=== PATIENT | female | born 1950 | race Caucasian/White ===

== ENCOUNTER 2025-02-07 06:58 | Emergency (ER) | payer MEDICARE, SELFPAY ==
[2025-02-07 07:05] VITALS: BP 144/83; PULSE 86; TEMP 36.5; O2SAT 96; BMI 25.8
--- NOTE | 2025-02-07 07:33 | ED.NECK1 ---
HPI HPI - Neck Pain/Injury General Chief Complaint: Neck Pain/Injury Stated Complaint: NECK PAIN Time Seen by Provider: 02/07/25 07:10 Source: patient Mode of arrival: walk-in History of Present Illness HPI Narrative: The patient is a 74 years old female is coming today with a left neck pain that started last night, she is not able to turn her neck to the left side because of the pain she mentioned that she installed a TV that is little bit higher than her side and she have to look up to watch the TV, the patient denies any other complaint and no numbness tingling in her arm no other complaint of chest pain or nausea vomiting Patient applying warm compression to her left neck Related Data Previous Rx's ?Medication ?Instructions ?Recorded diclofenac sodium 50 mg 50 mg PO Q12H PRN pain #20 tabs 02/07/25 tablet,delayed release orphenadrine citrate 100 mg 100 mg PO BID PRN muscle spasm #20 02/07/25 tablet,extended release tabs Allergies Allergy/AdvReac Type Severity Reaction Status Date / Time codeine Allergy Vomiting Verified 02/07/25 07:04 Opioid HPI Opioid Management Most Recent Opioid Data: Last Pain Scale 8 Today, 07:45 Last MAR Pain Assessment Today, 07:45 Review of Systems ROS Status of ROS 10 or more systems reviewed and unremarkable except as noted in history and below PFSH PFSH Social History Little interest or pleasure in doing things: not at all Feeling down, depressed, or hopeless: not at all Exam Narrative Exam Narrative: Nurses notes and vital signs reviewed and patient is not hypoxic. General: Well-appearing and in no apparent distress. Skin: Warm, dry, no pallor noted. No rash. Head: Normocephalic, atraumatic. Neck: There is no intervertebral line tenderness and there is no right paraspinal muscle tenderness the patient only have limited left paraspinal muscle tenderness mostly at the upper cervical level and there is still full range of movement but with pain Neurological: A&O x4. No cranial nerve dysfunction observed. No truncal ataxia. Moves all extremities. Sensation intact. Psychiatric: Cooperative and interactive. Normal mood and affect. Constitutional Vital Signs, click to edit/add: Last Vital Signs Temp 97.7 F 02/07/25 07:05 Pulse 86 02/07/25 07:05 Resp 18 02/07/25 07:05 BP 144/83 H 02/07/25 07:05 Pulse Ox 96 02/07/25 07:05 O2 Del Method Room Air 02/07/25 07:05 Course Vital Signs Vital signs: Vital Signs Temperature 97.7 F 02/07/25 07:05 Pulse Rate 86 02/07/25 07:05 Respiratory Rate 18 02/07/25 07:05 Blood Pressure 144/83 H 02/07/25 07:05 Pulse Oximetry 96 02/07/25 07:05 Oxygen Delivery Method Room Air 02/07/25 07:05 Temperature 97.7 F 02/07/25 07:05 Pulse Rate 86 02/07/25 07:05 Respiratory Rate 18 02/07/25 07:05 Blood Pressure 144/83 H 02/07/25 07:05 Pulse Oximetry 96 02/07/25 07:05 Oxygen Delivery Method Room Air 02/07/25 07:05 MDM - Neck Pain/Injury MDM Narrative Medical decision making narrative: Patient have a neck spasm and paraspinal muscle muscle strain to the left side of the neck which could be secondary to torticollis right now the patient was started on Toradol as well as Norflex instructed to hydrate very well and she was discharged with Voltaren and Norflex with instruction to come back in case of new symptoms and continue to stretch her neck muscles on a regular basis The patient to follow-up with the primary care within 2 to 3 days and to come back to the ER in case of any worsening of the current symptoms or any new symptoms or concerns Discharge Plan Discharge Chief Complaint: Neck Pain/Injury Clinical Impression: Acute torticollis, Neck sprain Patient Disposition: Home, Self-Care Time of Disposition Decision: 07:34 Condition: Good Prescriptions / Home Meds: New diclofenac sodium 50 mg tablet,delayed release (DR/EC) 50 mg PO Q12H PRN (Reason: pain) Qty: 20 0RF orphenadrine citrate 100 mg tablet extended release 100 mg PO BID PRN (Reason: muscle spasm) Qty: 20 0RF Print Language: Mauritanian Instructions: Spasmodic Torticollis (ED), Neck Pain (ED) Additional Instructions: Please make sure you hydrate very well Take all your medication with food Make sure that you are stretching your neck muscles regularly The patient to follow-up with the primary care within 2 to 3 days and to come back to the ER in case of any worsening of the current symptoms or any new symptoms or concerns Discharge Date/Time: 02/07/25 08:03
[2025-02-07] MEDS: KETOROLAC TROMETHAMINE 30 MG/ML VIAL 15 MG IM (07:45)
[2025-02-07] MEDS: ORPHENADRINE 60 MG/2 ML VIAL IM (07:47)
--- OUTSIDE RECORDS SUMMARY | 2025-02-07 07:49 | XMS_ITS | Clinical Summary ---
Author Organization [facility] Address [address] [facility] [place] [address] Care Team Providers Care Casing Tester Name Role Phone Kamari Quinn MD Primary Care Provider [phone] Allergies Active AllergyReactionsCriticalityNoted BumpGxfhzzefDzstvfaDbxcigixa60/05/2023 UokrwRqctr17/07/2025Venlafaxine QroOygxp20/07/2025 Medications MedicationSigDispense QuantityRefillsLast FilledStart DateEnd DateStatus KRILL OIL OMEGA-3 PO Krill OilActive cholecalciferol (Vitamin D-3) 125 MCG (5000 UT) tablet Vitamin I6Bfjfxv Glucosamine-Chondroitin (OSTEO BI-FLEX REGULAR STRENGTH PO) Osteo Bi-Flex Regular StrengthActive Multiple Vitamin (multivitamin) tablet Take 1 tablet by mouth in the morning.Active acetaminophen (Tylenol 8 Hour) 650 MG ER tablet Take 650 mg by mouth every 8 (eight) hours if needed for mild pain Do not crush, chew, or split.Active naproxen (Naprosyn) 250 MG tablet Take by mouthActive Active Problems No known active problems Family History Medical HistoryRelationNameCommentsStrokeBrotherHypertensionFatherKidney disease FatherHypertensionMotherBrain stem malformationSisterRelationNameStatusComments BrotherFatherDeceasedMotherAliveSister Social History Tobacco UseTypesPacks/DayYears UsedDateSmoking Tobacco: NeverSmokeless Tobacco: Never Tobacco Cessation:Counseling Given: Not Answered Alcohol UseStandard Drinks/WeekCommentsYes2 (1 standard drink = 0.6 oz pure alcohol)CommentsNoSex and Gender InformationValueDate RecordedSex Assigned at BirthNot on fileLegal VkeVkyugv15/15/2023 6:46 PM EDTGender Identity Not on fileSexual OrientationNot on file Last Filed Vital Signs Vital SignReadingTime TakenCommentsBlood Kwtofmjp640/7403/02/2024 11:34 AM EST Pulse--Temperature--Respiratory Rate--Oxygen Saturation--Inhaled Oxygen Concentration--Jjevmm16.7 kg (169 lb)03/02/2024 11:34 AM FYFAcfxmu954.2 cm (5' 7 )08/04/2023 10:20 AM EDTBody Mass Index26.47008/04/2023 10:20 AM EDT Plan of Treatment Health MaintenanceDue DateLast DoneCommentsCT Fpdmovbikqjj1950Colonoscopy 1950olorectal Cancer Tuajzgmnr1950FIT-DNA1950FIT1950 FOBT1950 6046Dmedrcodrgygn1950neumococcal Vaccine: 65+ Years (1 of 1 - PCV)2001COVID-19 Vaccine (2024- season)512/10/2020, 06/01/2020, 05/10/2020Influenza Vaccine (#1)10/25/20246684Zixevkril32/30/2026 07/23/2024 Procedures Procedure NamePriorityDate/TimeAssociated DiagnosisCommentsBI MAMMOGRAM SCREENING TOMOSYNTHESIS ONXNFXUYBItlhtol01/30/2025 12:05 PM EDT Other screening mammogram from Last 3 Months or Most Recently Relevant to Health Maintenance Results * Bilateral screening mammogram with tomosynthesis (07/23/2024 12:05 PM EDT) Anatomical RegionLateralityModalityBreastBilateralMammographySpecimen (Source) Anatomical Location / LateralityCollection Method / VolumeCollection Time Received Time07/23/2024 12:05 PM EDT Impressions 07/23/2024 12:09 PM EDT NO MAMMOGRAPHIC EVIDENCE OF MALIGNANCY. ? ROUTINE FOLLOW-UP IS RECOMMENDED IN ONE YEAR. ? RESULT CODE: 2 ? Benign Findings(s) ? DENSITY CODE: 3 (approximately 51-75% glandular) The breasts are heterogeneously dense, which may obscure small masses. ? FOLLOW UP: 1YR ? The false-negative rate of mammography is approximately 10-percent. ? Management of a palpable abnormality must be based on clinical grounds. ? Patient was entered into a reminder system with a target due date for the next mammogram. ? Impression dictated by: Candelario Hussein M.D. ??07/23/2024 12:07 PM ? Dictation Location: S01 ? Dictated By: ?Candelario Hussein II, MD ? 07/23/24 1205 ? Signed By: <Electronically signed by Candealrio Hussein II, MD in [place]> ? 07/23/24 1207 Narrative 07/23/2024 12:09 PM EDT [facility] ?[address] ?[place] [address] ?? [phone] ? Mammography Report ? Signed ? Patient: Rosales,Jessi L ?MR#: [id number] ?? [id number] ? : 1950 ?Acct:[id number] ? Age/Sex: 74 / F ?Adm Date: 05/30/25 ? Loc: [place] ?Room: ?Type: REG CLI ?? Attending Dr: Fede Garcia MD ? Ordering Provider: FEDE GARCIA MD ? Date of Service: 07/23/24 ? Procedure(s): MM screening mammo BI w/CAD ?? Accession Number(s): ([id number]) MM/MM screening mammo BI w/CAD: screen ? Copies to: FEDE GARCIA MD ?? Kamari Quinn MD ? CLINICAL DATA: ??Screening for malignancy. ? BILATERAL SCREENING MAMMOGRAMS - FULL FIELD DIGITAL WITH TOMOSYNTHESIS AND CAD ? Tomosynthesis craniocaudal and mediolateral oblique views of both breasts were obtained using low- dose digital technique. ??Comparison is made to prior studies from 05/30/2023, 03/09/2021, and 07/22/2019. ??This examination was reviewed with the aid of CAD. ? The breast parenchyma is heterogeneously dense. Benign-appearing calcifications are present. Benign- appearing lymph nodes are noted along the chest wall. There are no dominant masses, typically malignant calcifications or architectural distortion. ??There has been no significant interval change. ? MM/MM screening mammo BI w/CAD ?? Procedure Note Candelario Hussein MD - 07/23/2024 [place] [address] Mammography Report Signed Patient: Jessi Rosales LMR#: [id number] : 1950cct:[id number] Age/Sex: 74 / FAdm Date: 07/23/24 Loc: [place] Room:Type: [facility] Attending Dr: Fede Garcia MD Ordering Provider: FEDE GARCIA MD Date of Service: 07/23/24 Procedure(s): MM screening mammo BI w/CAD Accession Number(s): ([id number]) MM/MM screening mammo BI w/CAD: screen Copies to: MD Kamari VINCENT MD CLINICAL DATA: Screening for malignancy. BILATERAL SCREENING MAMMOGRAMS - FULL FIELD DIGITAL WITH TOMOSYNTHESIS ANDCAD Tomosynthesis craniocaudal and mediolateral oblique views of both breastswere obtained using low- dose digital technique. Comparison is made to prior studies from05/30/2023, 03/09/2021, and 07/22/2019. This examination was reviewed with the aid of CAD. The breast parenchyma is heterogeneously dense. Benign-appearingcalcifications are present. Benign- appearing lymph nodes are noted along the chest wall. There are nodominant masses, typically malignant calcifications or architectural distortion. There has been no significant interval change. MM/MM screening mammo BI w/CAD IMPRESSION: NO MAMMOGRAPHIC EVIDENCE OF MALIGNANCY. ROUTINE FOLLOW-UP IS RECOMMENDED IN ONE YEAR. RESULT CODE: 2 Benign Findings(s) DENSITY CODE: 3 (approximately 51-75% glandular) The breasts areheterogeneously dense, which may obscure small masses. FOLLOW UP: 1YR The false-negative rate of mammography is approximately 10-percent. Management of a palpable abnormality must be based on clinical grounds. Patient was entered into a reminder system with a target due date for thenext mammogram. Impression dictated by: Candelario Hussein M.D. 07/23/2024 12:07 PM Dictation Location: [facility] Dictated By: Candelario Hussein II, MD 07/23/24 1205 Signed By: <Electronically signed by Candelario Hussein II, MD inOV> 07/23/24 1207 Authorizing ProviderResult TypeResult StatusFede Garcia MDIMMarta BI PROCEDURES Final Result from Last 3 Months or Most Recently Relevant to Health Maintenance Insurance Care Teams Team MemberRelationshipSpecialtyStart DateEnd Date Kamari Quinn MD PCP - GeneralInternal Medicine04/02/23
== END 2025-02-07 08:03 | disposition home or self-care (01) ==
LOC: ER 07:46
PROVIDERS: Emergency Provider Emergency Medicine; PCP Internal Medicine
DX: M43.6 Torticollis (principal); S13.9XXA Sprain of joints and ligaments of unspecified parts of neck, initial encounter; X50.1XXA Overexertion from prolonged static or awkward postures, initial encounter
CPT/HCPCS: 96372; 99284; J1885; J2360